=== PATIENT | male | born 1955 | race Caucasian/White ===

== ENCOUNTER 2017-04-18 14:36 | Emergency (ER) | payer MEDICAID ==
[~2017-04-18] VITALS: Ht 180.3 cm; Wt 59.0 kg
[2017-04-18] MEDS ORDERED: HYDR-565 PO (16:24)
[2017-04-18 16:35] VITALS: BP 117/76
== END 2017-04-18 16:36 | disposition home or self-care (01) ==
LOC: ER 14:36
DX: S32.019G Unspecified fracture of first lumbar vertebra, subsequent encounter for fracture with delayed healing (principal); F17.200 Nicotine dependence, unspecified, uncomplicated; G89.29 Other chronic pain; Z60.2 Problems related to living alone; W19.XXXD Unspecified fall, subsequent encounter
CPT/HCPCS: 72131; 99284

== ENCOUNTER 2018-07-17 13:44 | Emergency (ER) | payer MEDICARE, MEDICAID ==
[~2018-07-17] VITALS: Ht 180.3 cm; Wt 54.1 kg
--- NOTE | 2018-07-17 14:29 | NUR ---
pt to radiology.
[2018-07-17 14:43] LABS: BASOPHILS % (AUTO) 0.5 % (0-1); EOSINOPHILS % (AUTO) 0.2 % (0-6); HEMATOCRIT 38.8 % (42.0-52.0); HEMOGLOBIN 13.2 g/dl (14.0-17.9); LYMPHOCYTES # (AUTO) 0.7 X10'3 (1.1-4.8); LYMPHOCYTES % (AUTO) 6.7 % (21-51); MEAN CORPUSCULAR HEMOGLOBIN 31.5 PG (27.0-31.0); MEAN CORPUSCULAR HGB CONC 34.1 g/dL (33.0-36.5); MEAN CORPUSCULAR VOLUME 92.5 FL (78-98); MEAN PLATELET VOLUME 6.9 FL (7.4-10.4); MONOCYTES # (AUTO) 1.4 X10'3 (0-0.9); MONOCYTES % (AUTO) 13.8 % (2-12); NEUTROPHILS # (AUTO) 8.1 X10'3 (1.8-7.7); NEUTROPHILS % (AUTO) 78.8 % (42-75); PLATELET COUNT 368 X10'3 (140-440); RED CELL DISTRIBUTION WIDTH 15.6 % (11.5-14.5); WHITE BLOOD COUNT 10.3 X10'3 (4.5-11.0)
[2018-07-17 15:01] LABS: ALANINE AMINOTRANSFERASE 17 U/L (12-78); ALBUMIN 3.3 G/DL (3.4-5.0); ALBUMIN/GLOBULIN RATIO 0.7 (1.1-1.5); ALKALINE PHOSPHATASE 79 IU/L (46-116); ANION GAP 8 (8-16); ASPARTATE AMINO TRANSFERASE 14 U/L (10-37); BILIRUBIN,TOTAL 0.4 MG/DL (0.1-1.0); BLOOD UREA NITROGEN 9 MG/DL (7-18); BUN/CREATININE RATIO 12.3 (5.4-32.0); CALCIUM 8.9 MG/DL (8.5-10.1); CHLORIDE 90 MMOL/L (99-107); CREATININE 0.73 MG/DL (0.60-1.10); GLUCOSE 98 MG/DL (70-104); POTASSIUM 3.8 MMOL/L (3.5-5.1); SODIUM 127 MMOL/L (135-145); TOTAL CARBON DIOXIDE 29.2 MMOL/L (24-32); TOTAL PROTEIN 8.1 G/DL (6.4-8.2); eGFR > 90 ML/MIN
[2018-07-17] MEDS ORDERED: methylPREDNISolone sod succ 125mg/2ml vial IV ONE (15:20)
[2018-07-17] MEDS ORDERED: ipratropium/albuterol 3ml nebule NEB ONE ×3 (15:20→17:35)
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
[2018-07-17 15:25] LABS: MAGNESIUM 1.4 MG/DL (1.5-2.4)
[2018-07-17 16:16] LABS: ABG BASE EXCESS 0.5 mmol/L (-2.0-3.0); ABG OXYGEN SATURATION 91.4 % (95-98); ABG PCO2 (T) 30.9 mmHg (35.0-48.0); ABG PO2 (T) 57.7 mmHg (83-108); ALLEN'S TEST Positive; FCOHb 0.6 % (0.5-1.5); FLOW 3 L/min; FMetHb 0.1 % (0.3-1.12); FO2Hb 90.8 % (94-100)
[2018-07-17] MEDS ORDERED: albuterol 2.5 MG/3 ML nebule NEB ONE (19:00)
[2018-07-17] MEDS ORDERED: magnesium 2GM in 50ml NS 50 ML IV ONE (19:00)
[2018-07-17] MEDS ORDERED: PRED20TA PO (22:21)
[2018-07-17] MEDS ORDERED: AZIT250T83 PO (22:21)
[2018-07-17 22:31] VITALS: BP 126/85
== END 2018-07-17 22:32 | disposition home or self-care (01) ==
LOC: ER 13:45
DX: J44.1 Chronic obstructive pulmonary disease with (acute) exacerbation (principal); G89.29 Other chronic pain; F17.200 Nicotine dependence, unspecified, uncomplicated; Z88.5 Allergy status to narcotic agent; Z88.8 Allergy status to other drugs, medicaments and biological substances; Z60.2 Problems related to living alone
CPT/HCPCS: 36415; 36600; 71046; 80053; 82803; 83605; 83735; 83880; 84484; 85018; 85025; 85610; 87040; 93005; 94640; 94760; 96365; 96366; 96375; 99285; J2930; J3475

== ENCOUNTER 2019-03-16 11:43 | Inpatient (IN) | payer MEDICARE, MEDICAID ==
[~2019-03-16] VITALS: Ht 180.3 cm; Wt 56.8 kg
[2019-03-16] MEDS ORDERED: methylPREDNISolone sod succ 125mg/2ml vial IV ONE (12:35)
[2019-03-16] MEDS ORDERED: albuterol 2.5 MG/3 ML nebule NEB ONE (12:35)
[2019-03-16] MEDS ORDERED: normal saline 1000ML IV soln IVB ONE (12:35)
[2019-03-16] MEDS ORDERED: LORazepam 2 mg/ml vial IV ONE (12:40)
[2019-03-16 12:59] LABS: BASOPHILS # (AUTO) 0.1 X10'3 (0-0.2); EOSINOPHILS % (AUTO) 0.5 % (0-6); HEMATOCRIT 39.1 % (42.0-52.0); HEMOGLOBIN 13.3 g/dl (14.0-17.9); LYMPHOCYTES # (AUTO) 0.9 X10'3 (1.1-4.8); MEAN CORPUSCULAR HEMOGLOBIN 32.5 PG (27.0-31.0); MEAN CORPUSCULAR HGB CONC 34.1 g/dL (33.0-36.5); MEAN CORPUSCULAR VOLUME 95.3 FL (78-98); MEAN PLATELET VOLUME 6.3 FL (7.4-10.4); MONOCYTES # (AUTO) 0.9 X10'3 (0-0.9); MONOCYTES % (AUTO) 11.9 % (2-12); NEUTROPHILS # (AUTO) 5.7 X10'3 (1.8-7.7); NEUTROPHILS % (AUTO) 74.6 % (42-75); PLATELET COUNT 339 X10'3 (140-440); RED CELL DISTRIBUTION WIDTH 14.8 % (11.5-14.5); WHITE BLOOD COUNT 7.7 X10'3 (4.5-11.0)
[2019-03-16 13:12] LABS: ALANINE AMINOTRANSFERASE 26 U/L (12-78); ALBUMIN 3.7 G/DL (3.4-5.0); ALBUMIN/GLOBULIN RATIO 0.9 (1.1-1.5); ALKALINE PHOSPHATASE 81 IU/L (46-116); ANION GAP 6 (8-16); ASPARTATE AMINO TRANSFERASE 22 U/L (10-37); BILIRUBIN,TOTAL 0.2 MG/DL (0.1-1.0); BLOOD UREA NITROGEN 12 MG/DL (7-18); BUN/CREATININE RATIO 20.3 (5.4-32.0); CALCIUM 8.4 MG/DL (8.5-10.1); CHLORIDE 91 MMOL/L (99-107); CREATININE 0.59 MG/DL (0.60-1.10); GLUCOSE 83 MG/DL (70-104); POTASSIUM 4.7 MMOL/L (3.5-5.1); SODIUM 127 MMOL/L (135-145); TOTAL CARBON DIOXIDE 30.4 MMOL/L (24-32); TOTAL PROTEIN 7.6 G/DL (6.4-8.2); eGFR > 90 ML/MIN
[2019-03-16] MEDS ORDERED: albuterol 2.5 MG/3 ML nebule CONTNEB PRN (13:25)
[2019-03-16] MEDS ORDERED: ipratropium 0.5 MG/2.5ML nebule ONE (13:38)
[2019-03-16] MEDS ORDERED: ipratropium 0.5 MG/2.5ML nebule IH ONE (13:40)
[2019-03-16] MEDS ORDERED: azithromycin 250mg tablet PO ONE (14:40)
[2019-03-16] MEDS ORDERED: CefTRIAXone/D5W-Rocephin 1gm 50 ML IV ONE (14:40)
[2019-03-16] MEDS ORDERED: mag hydrox/Alum hydrox/simeth 30ml oral suspension PO PRN (15:15)
[2019-03-16] MEDS ORDERED: acetaminophen 325mg tablet PO PRN (15:15)
[2019-03-16] MEDS ORDERED: magnesium hydroxide 30ml (MOM) UD suspension PO PRN (15:15)
--- NOTE | 2019-03-16 15:52 | NUR ---
Patient in room ED 1. I have received report from ED nurse and had the opportunity to ask questions and assume patient care.
[2019-03-16] MEDS ORDERED: NO HOME MEDS (16:09)
--- NOTE | 2019-03-16 16:30 | NUR ---
Pt arrived to unit to room 3009. Vitals taken and WNL. Pt alert and oriented. Oriented Pt to room, call light, bathroom.
[2019-03-16] MEDS: normal saline 1000ml 1,000 ML IV SCH (16:45)
--- NOTE | 2019-03-16 17:42 | NUR ---
PAGER ID: [phone] MESSAGE: Re: [place], Room 3009. Pt takes Ativan 0.5mg PO at home for anxiety. Pt feeling anxious and restless. Can we get an order for Ativan 0.5mg? Thank you. -Ton [facility] #[phone]
[2019-03-16 18:00] VITALS: BP 156/101
--- NOTE | 2019-03-16 18:00 | NUR ---
Problems reprioritized. Patient report given, questions answered & plan of care reviewed with Deanna LIRIANO.
[2019-03-16] MEDS: LORazepam 0.5 MG tablet PO PRN ×2 (19:23→23:56)
[2019-03-16] MEDS: heparin, porcine 5000 units/ml vial SQ SCH (19:24)
[2019-03-16] MEDS: methylPREDNISolone sod succ 125mg/2ml vial IV SCH (19:24)
[2019-03-16] MEDS: ipratropium/albuterol 3ml nebule NEB SCH ×2 (19:38→23:35)
[2019-03-16 22:00] VITALS: BP 169/106
[2019-03-17] MEDS: methylPREDNISolone sod succ 125mg/2ml vial IV SCH ×3 (01:27→13:37)
[2019-03-17 02:00] VITALS: BP 148/101
[2019-03-17] MEDS: normal saline 1000ml 1,000 ML IV SCH ×3 (02:53→23:55)
[2019-03-17] MEDS: ipratropium/albuterol 3ml nebule NEB SCH ×6 (03:03→23:37)
[2019-03-17] MEDS: LORazepam 0.5 MG tablet PO PRN ×4 (04:08→19:16)
[2019-03-17] MEDS ORDERED: guaiFENesin/DM 10ml UD oral syrup PO ONE (04:30)
[2019-03-17 06:00] VITALS: BP 159/101
--- NOTE | 2019-03-17 06:14 | NUR ---
Problems reprioritized. Patient report given, questions answered & plan of care reviewed with HERI OLIVAS.
[2019-03-17 06:21] LABS: BASOPHILS # (AUTO) 0.1 X10'3 (0-0.2); EOSINOPHILS % (AUTO) 0 % (0-6); HEMATOCRIT 33.8 % (42.0-52.0); HEMOGLOBIN 11.7 g/dl (14.0-17.9); LYMPHOCYTES # (AUTO) 0.6 X10'3 (1.1-4.8); LYMPHOCYTES % (AUTO) 7.8 % (21-51); MEAN CORPUSCULAR HEMOGLOBIN 33.4 PG (27.0-31.0); MEAN CORPUSCULAR HGB CONC 34.6 g/dL (33.0-36.5); MEAN CORPUSCULAR VOLUME 96.8 FL (78-98); MEAN PLATELET VOLUME 6.7 FL (7.4-10.4); MONOCYTES # (AUTO) 0.1 X10'3 (0-0.9); MONOCYTES % (AUTO) 1.4 % (2-12); NEUTROPHILS # (AUTO) 6.5 X10'3 (1.8-7.7); NEUTROPHILS % (AUTO) 89.8 % (42-75); PLATELET COUNT 318 X10'3 (140-440); RED CELL DISTRIBUTION WIDTH 14.8 % (11.5-14.5); WHITE BLOOD COUNT 7.2 X10'3 (4.5-11.0)
--- NOTE | 2019-03-17 06:26 | NUR ---
Patient in room PCU 3009. I have received report from Mirlande LIRIANO and had the opportunity to ask questions and assume patient care.
[2019-03-17 06:43] LABS: ALBUMIN 3.1 G/DL (3.4-5.0); ANION GAP 8 (8-16); BLOOD UREA NITROGEN 16 MG/DL (7-18); BUN/CREATININE RATIO 18.6 (5.4-32.0); CALCIUM 8.4 MG/DL (8.5-10.1); CHLORIDE 94 MMOL/L (99-107); CREATININE 0.86 MG/DL (0.60-1.10); GLUCOSE 251 MG/DL (70-104); POTASSIUM 4.1 MMOL/L (3.5-5.1); SODIUM 129 MMOL/L (135-145); TOTAL CARBON DIOXIDE 26.9 MMOL/L (24-32); eGFR 89 ML/MIN
[2019-03-17] MEDS: levoFLOXACIN-Levaquin 500mg/D5 100 ML IV SCH (08:08)
[2019-03-17] MEDS: heparin, porcine 5000 units/ml vial SQ SCH ×2 (08:09→19:16)
[2019-03-17] MEDS: ondansetron/PF 4mg/2ml inj IV PRN ×2 (08:29→19:16)
--- NOTE | 2019-03-17 09:10 | NUR ---
PAGER ID: [phone] MESSAGE: [phone] [place]: CAMILA pt is negative for influenza. thanks Jackson [phone]
[2019-03-17 11:00] VITALS: BP 153/100
[2019-03-17 15:00] VITALS: BP 117/68
[2019-03-17 18:00] VITALS: BP 128/90
--- NOTE | 2019-03-17 18:13 | NUR ---
Problems reprioritized. Patient report given, questions answered & plan of care reviewed with Raymond LIRIANO.
[2019-03-17] MEDS: lactobacillus rhamnosus 10,000 MMU CELLS/CAPSULE PO SCH (19:16)
[2019-03-17 22:00] VITALS: BP 130/77
[2019-03-18] MEDS: methylPREDNISolone sod succ 125mg/2ml vial IV SCH ×2 (00:10→08:07)
[2019-03-18 02:00] VITALS: BP 134/76
--- NOTE | 2019-03-18 02:44 | NUR ---
AKHTAR pain pt has been reporting AKHTAR pain related to coughing, he states that he has had this AKHTAR for "a few weeks". At this time he chooses to try and "sleep it away". will continue to assess when pt is awake.
[2019-03-18] MEDS: ipratropium/albuterol 3ml nebule NEB SCH ×2 (03:04→08:20)
[2019-03-18] MEDS: LORazepam 0.5 MG tablet PO PRN ×2 (04:44→08:29)
[2019-03-18 06:00] VITALS: BP 139/83
--- NOTE | 2019-03-18 06:16 | NUR ---
Problems reprioritized. Patient report given, questions answered & plan of care reviewed with Jackson LIRIANO.
[2019-03-18 06:20] LABS: BASOPHILS % (AUTO) 0.2 % (0-1); EOSINOPHILS % (AUTO) 0 % (0-6); HEMATOCRIT 31.5 % (42.0-52.0); LYMPHOCYTES # (AUTO) 0.3 X10'3 (1.1-4.8); LYMPHOCYTES % (AUTO) 2.3 % (21-51); MEAN CORPUSCULAR HEMOGLOBIN 32.9 PG (27.0-31.0); MEAN CORPUSCULAR HGB CONC 34.9 g/dL (33.0-36.5); MEAN CORPUSCULAR VOLUME 94.3 FL (78-98); MONOCYTES # (AUTO) 0.4 X10'3 (0-0.9); MONOCYTES % (AUTO) 2.9 % (2-12); NEUTROPHILS # (AUTO) 14.2 X10'3 (1.8-7.7); NEUTROPHILS % (AUTO) 94.6 % (42-75); PLATELET COUNT 326 X10'3 (140-440); RED BLOOD COUNT 3.34 X10'6 (4.70-6.10); RED CELL DISTRIBUTION WIDTH 14.9 % (11.5-14.5)
[2019-03-18 06:25] LABS: ANION GAP 3 (8-16); BLOOD UREA NITROGEN 14 MG/DL (7-18); BUN/CREATININE RATIO 17.7 (5.4-32.0); CALCIUM 8.1 MG/DL (8.5-10.1); CHLORIDE 94 MMOL/L (99-107); CREATININE 0.79 MG/DL (0.60-1.10); GLUCOSE 220 MG/DL (70-104); SODIUM 127 MMOL/L (135-145); TOTAL CARBON DIOXIDE 29.9 MMOL/L (24-32); eGFR > 90 ML/MIN
--- NOTE | 2019-03-18 06:37 | NUR ---
Patient in room PCU 3023. I have received report from Raymond LIRIANO and had the opportunity to ask questions and assume patient care.
--- NOTE | 2019-03-18 07:54 | NUR ---
PAGER ID: [phone] MESSAGE: [id number] [place]: CAMILA PT WBC increased to 15.0 from 7.2, pt denies any new complaints, continues to have nonproductive cough. Thanks Jackson [phone]
[2019-03-18] MEDS: lactobacillus rhamnosus 10,000 MMU CELLS/CAPSULE PO SCH (08:06)
[2019-03-18] MEDS: levoFLOXACIN-Levaquin 500mg/D5 100 ML IV SCH (08:06)
[2019-03-18] MEDS: normal saline 1000ml 1,000 ML IV SCH (08:07)
[2019-03-18] MEDS: heparin, porcine 5000 units/ml vial SQ SCH (08:07)
--- NOTE | 2019-03-18 10:55 | NUR ---
PT CAME TO RN STATION. HE STATED THAT HE WAS LEAVING. RADHIKA DISCHARGE PLANNING AND MYSELF TRIED TO HAVE HIM WAIT FOR O2 TANK. PT REFUSED TO WAIT. I TOLD HIM I NEEDED TO REMOVE PIV. PT REFUSED TO WAIT FOR THAT. SECURITY WAS CONTACTED. DEISY LIRIANO AND FOUND PT IN HALLWAY. REMOVED PIV. PT AGAIN DECLINED TO STAY. DR WALLACE NOTIFIED.
--- NOTE | 2019-03-18 11:00 | NUR ---
I was informed that patient is attempting to leave AMA. Earlier MD stated that pt will be discharging today but will need to work with case management prior to establish PCP and oxygen therapy. Patient does not want to stay and work with case management and states he will leave AMA and left to lobby, me and charge nurse find pt in lobby and discontinue PIV and return telemonitor, Dr. cordero informed.
[2019-03-23] MEDS ORDERED: PER5325T PO (12:04)
[2019-03-23] MEDS ORDERED: ATI1T PO (12:04)
[2019-03-23] MEDS ORDERED: GABA300C PO (12:04)
[2019-03-23] MEDS ORDERED: PRED20TA PO (12:04)
== END 2019-03-18 10:55 | disposition left against medical advice (07) | DRG 189 ==
LOC: ER 11:44 → ED HOLD 15:13 → PCU 3S 16:19
PROVIDERS: ADMIT Family Medicine; ATTEND Family Medicine
DX: J96.20 Acute and chronic respiratory failure, unspecified whether with hypoxia or hypercapnia (principal); J44.1 Chronic obstructive pulmonary disease with (acute) exacerbation; E87.1 Hypo-osmolality and hyponatremia; J44.0 Chronic obstructive pulmonary disease with (acute) lower respiratory infection; G89.29 Other chronic pain; M54.9 Dorsalgia, unspecified; J20.9 Acute bronchitis, unspecified; R00.0 Tachycardia, unspecified; Z53.29 Procedure and treatment not carried out because of patient's decision for other reasons; Z88.8 Allergy status to other drugs, medicaments and biological substances; Z99.81 Dependence on supplemental oxygen
CPT/HCPCS: 36415; 71045; 80048; 80053; 83880; 84484; 85025; 85610; 87081; 87502; 87503; 93005; 94640; 94667; 94760; 96365; 96375; 99285; G0378; J0696; J1644; J1956; J2060; J2405; J2930; J7030

== ENCOUNTER 2019-05-09 16:24 | Emergency (ER) | payer MEDICARE, MEDICAID ==
[~2019-05-09] VITALS: Ht 180.3 cm; Wt 59.1 kg
[~2019-05-09 16:24] MED LIST: AZI25OT PO; GABA-532 PO; LORA-269 PO; OXYC-145 PO; PRED10TA PO
[2019-05-09] MEDS ORDERED: DOXYCYCLINE 100MG CAPSULE PO STA (20:24)
[2019-05-09] MEDS ORDERED: ibuprofen tablet 400 MG TABLET PO ONE (20:25)
[2019-05-09] MEDS ORDERED: CEPH250T PO (20:33)
[2019-05-09] MEDS ORDERED: IBUP-1984 PO (20:33)
[2019-05-09] MEDS ORDERED: DOXY100C43 PO (20:33)
[2019-05-09] MEDS ORDERED: albuterol 2.5 MG/3 ML nebule NEB ONE (20:35)
[2019-05-09 21:48] VITALS: BP 125/96
== END 2019-05-09 21:49 | disposition home or self-care (01) ==
LOC: ER 16:24
DX: L03.113 Cellulitis of right upper limb (principal); J44.9 Chronic obstructive pulmonary disease, unspecified; G89.29 Other chronic pain; Z72.89 Other problems related to lifestyle; Z60.2 Problems related to living alone; Z88.5 Allergy status to narcotic agent; Z88.8 Allergy status to other drugs, medicaments and biological substances; Z79.2 Long term (current) use of antibiotics; Z79.899 Other long term (current) drug therapy
CPT/HCPCS: 73130; 93005; 94640; 94760; 99284

== ENCOUNTER 2019-05-27 21:00 | Emergency (ER) | payer MEDICARE, MEDICAID ==
[~2019-05-27] VITALS: Ht 180.3 cm; Wt 66.0 kg
[2019-05-27] MEDS ORDERED: ipratropium/albuterol 3ml nebule NEB ONE (21:15)
[2019-05-27] MEDS ORDERED: predniSONE 20 mg tablet PO ONE (21:15)
[2019-05-27] MEDS ORDERED: PRED20TA PO (21:48)
[2019-05-27 22:04] VITALS: BP 133/83
== END 2019-05-27 22:06 | disposition home or self-care (01) ==
LOC: ER 21:01
DX: J44.1 Chronic obstructive pulmonary disease with (acute) exacerbation (principal); G89.29 Other chronic pain; F17.200 Nicotine dependence, unspecified, uncomplicated; Z60.2 Problems related to living alone; Z88.5 Allergy status to narcotic agent; Z79.2 Long term (current) use of antibiotics; Z79.899 Other long term (current) drug therapy
CPT/HCPCS: 71046; 94640; 99283; J7512; 94760

== ENCOUNTER 2019-05-30 11:42 | Emergency (ER) | payer MEDICARE, MEDICAID ==
[~2019-05-30] VITALS: Ht 180.3 cm; Wt 70.0 kg
[~2019-05-30 11:42] MED LIST changes: +PRED20TA PO
[2019-05-30] MEDS ORDERED: ipratropium/albuterol 3ml nebule NEB ONE (12:05)
[2019-05-30] MEDS ORDERED: oxyCODONE/APAP 5-325mg tablet PO ONE (12:05)
[2019-05-30 12:34] LABS: BASOPHILS % (AUTO) 0.7 % (0-1); EOSINOPHILS % (AUTO) 0.6 % (0-6); HEMATOCRIT 40.1 % (42.0-52.0); HEMOGLOBIN 13.6 g/dl (14.0-17.9); LYMPHOCYTES # (AUTO) 0.6 X10'3 (1.1-4.8); MEAN CORPUSCULAR HEMOGLOBIN 32.6 PG (27.0-31.0); MEAN CORPUSCULAR VOLUME 95.9 FL (78-98); MEAN PLATELET VOLUME 6.5 FL (7.4-10.4); MONOCYTES # (AUTO) 0.6 X10'3 (0-0.9); MONOCYTES % (AUTO) 13.9 % (2-12); NEUTROPHILS % (AUTO) 70.8 % (42-75); PLATELET COUNT 264 X10'3 (140-440); RED BLOOD COUNT 4.19 X10'6 (4.70-6.10); RED CELL DISTRIBUTION WIDTH 14.6 % (11.5-14.5); WHITE BLOOD COUNT 4.2 X10'3 (4.5-11.0)
[2019-05-30 12:54] LABS: ALANINE AMINOTRANSFERASE 75 U/L (12-78); ALKALINE PHOSPHATASE 74 IU/L (46-116); ANION GAP 7 (8-16); ASPARTATE AMINO TRANSFERASE 57 U/L (10-37); BILIRUBIN,TOTAL 0.6 MG/DL (0.1-1.0); BLOOD UREA NITROGEN 9 MG/DL (7-18); BUN/CREATININE RATIO 14.1 (5.4-32.0); CALCIUM 8.7 MG/DL (8.5-10.1); CHLORIDE 93 MMOL/L (99-107); CREATININE 0.64 MG/DL (0.60-1.10); GLUCOSE 80 MG/DL (70-104); POTASSIUM 4.3 MMOL/L (3.5-5.1); SODIUM 128 MMOL/L (135-145); TOTAL CARBON DIOXIDE 27.6 MMOL/L (24-32); TOTAL PROTEIN 8.1 G/DL (6.4-8.2); eGFR > 90 ML/MIN
[2019-05-30] MEDS ORDERED: OXYC-145 PO (13:12)
[2019-05-30] MEDS ORDERED: ondansetron 4mg rapidly disintigrating tab PO ONE (13:40)
[2019-05-30 13:55] VITALS: BP 156/114
[2019-06-01] MEDS ORDERED: vancomycin/NS 1 GM ADD-VANTAGE 250 ML IV ONE (16:20)
[2019-06-01] MEDS ORDERED: HYDROcodone/acetaminophen 10/325mg tab PO PRN (16:20)
[2019-06-01] MEDS ORDERED: HYDROcodone/acetaminophen 5mg/325mg tablet PO PRN (16:20)
== END 2019-05-30 13:49 | disposition home or self-care (01) ==
LOC: ER 11:43
DX: J44.9 Chronic obstructive pulmonary disease, unspecified (principal); E87.1 Hypo-osmolality and hyponatremia; R07.89 Other chest pain; G89.29 Other chronic pain; Z60.2 Problems related to living alone; Z72.89 Other problems related to lifestyle; Z88.5 Allergy status to narcotic agent; Z79.899 Other long term (current) drug therapy; W01.0XXA Fall on same level from slipping, tripping and stumbling without subsequent striking against object, initial encounter; Y93.89 Activity, other specified; Y92.098 Other place in other non-institutional residence as the place of occurrence of the external cause; Y99.8 Other external cause status
CPT/HCPCS: 36415; 71045; 80053; 85025; 94640; 99284